=== PATIENT | male | born 1935 | race Two or more races ===

== ENCOUNTER → 2019-05-26 | Outpatient (CLI) | payer MEDICARE, OTHER | END | disposition home or self-care (01) | LOC: MSC 16:00 | PROVIDERS: ATTEND Anesthesiology | DX: M46.96 Unspecified inflammatory spondylopathy, lumbar region (principal); M54.16 Radiculopathy, lumbar region; M40.299 Other kyphosis, site unspecified; M62.830 Muscle spasm of back; G89.4 Chronic pain syndrome; E11.40 Type 2 diabetes mellitus with diabetic neuropathy, unspecified ==

== ENCOUNTER → 2019-07-14 | Outpatient (CLI) | payer MEDICARE, OTHER | END | disposition home or self-care (01) | DX: M46.96 Unspecified inflammatory spondylopathy, lumbar region (principal); M54.16 Radiculopathy, lumbar region; M40.299 Other kyphosis, site unspecified; M62.830 Muscle spasm of back; G89.4 Chronic pain syndrome; E11.40 Type 2 diabetes mellitus with diabetic neuropathy, unspecified; Z79.84 Long term (current) use of oral hypoglycemic drugs; Z79.1 Long term (current) use of non-steroidal anti-inflammatories (NSAID) ==

== ENCOUNTER → 2019-11-24 | Outpatient (CLI) | payer MEDICARE, OTHER | END | disposition home or self-care (01) | LOC: MSC 14:30 | PROVIDERS: ATTEND Anesthesiology | DX: M46.96 Unspecified inflammatory spondylopathy, lumbar region (principal); M54.16 Radiculopathy, lumbar region; M48.061 Spinal stenosis, lumbar region without neurogenic claudication; M62.830 Muscle spasm of back; M40.299 Other kyphosis, site unspecified; G89.4 Chronic pain syndrome; M79.606 Pain in leg, unspecified; M54.2 Cervicalgia; Z79.1 Long term (current) use of non-steroidal anti-inflammatories (NSAID) ==

== ENCOUNTER → 2020-01-26 | Outpatient (CLI) | payer MEDICARE, OTHER | END | disposition home or self-care (01) | LOC: MSC 10:05 | PROVIDERS: ATTEND Anesthesiology | DX: M46.96 Unspecified inflammatory spondylopathy, lumbar region (principal); M48.061 Spinal stenosis, lumbar region without neurogenic claudication; M54.16 Radiculopathy, lumbar region; M62.830 Muscle spasm of back; M40.299 Other kyphosis, site unspecified; G89.4 Chronic pain syndrome; M54.2 Cervicalgia; M25.569 Pain in unspecified knee; E11.40 Type 2 diabetes mellitus with diabetic neuropathy, unspecified; Z79.1 Long term (current) use of non-steroidal anti-inflammatories (NSAID); Z79.899 Other long term (current) drug therapy ==

== ENCOUNTER → 2020-05-24 | Outpatient (CLI) | payer MEDICARE, OTHER | END | disposition home or self-care (01) | LOC: MSC 11:05 | PROVIDERS: ATTEND Anesthesiology | DX: M46.96 Unspecified inflammatory spondylopathy, lumbar region (principal); M48.061 Spinal stenosis, lumbar region without neurogenic claudication; M54.16 Radiculopathy, lumbar region; M40.299 Other kyphosis, site unspecified; M62.830 Muscle spasm of back; G89.4 Chronic pain syndrome; M54.2 Cervicalgia; M25.569 Pain in unspecified knee; E11.40 Type 2 diabetes mellitus with diabetic neuropathy, unspecified; Z79.899 Other long term (current) drug therapy; Z79.1 Long term (current) use of non-steroidal anti-inflammatories (NSAID) ==